=== PATIENT | female | born 1955 | race African-American/Black ===

== ENCOUNTER 2017-07-02 10:26 | Emergency (ER) | payer BC ==
[~2017-07-02] VITALS: Ht 167.6 cm; Wt 72.6 kg
[2017-07-02] MEDS ORDERED: LOSA1TAB42 PO (10:39)
[2017-07-02] MEDS ORDERED: [UNRECOGNIZED DRUG - REMARK] (10:40)
[2017-07-02] MEDS ORDERED: NITROGLYCERIN 0.4 MG/TAB BOTTLE SL ONE ×2 (10:45→10:56)
[2017-07-02] MEDS ORDERED: IV NORMAL SALINE 500 ML BAG IV ONE (10:45)
[2017-07-02] MEDS ORDERED: ASPIRIN 325 MG TABLET PO ONE (10:45)
[2017-07-02] MEDS ORDERED: ASPIRIN 325 MG TABLET ONE (10:56)
[2017-07-02 11:03] VITALS: BP 113/69
[2017-07-02 11:19] LABS: BASOPHILS # (AUTO) 0.1 K/uL (0.0-8.0); BASOPHILS % (AUTO) 1.2 % (0.0-2.0); EOSINOPHILS # (AUTO) 0.1 K/uL (0.0-0.7); EOSINOPHILS % (AUTO) 1.6 % (0.0-7.0); HEMATOCRIT 35.6 % (31.2-41.9); HEMOGLOBIN 11.8 g/dL (10.9-14.3); LYMPHOCYTES % (AUTO) 45.1 % (20.5-51.5); MEAN CORPUSCULAR HEMOGLOBIN 31.4 uug (24.7-32.8); MEAN CORPUSCULAR HGB CONC 33 g/dL (32.3-35.6); MEAN CORPUSCULAR VOLUME 94.5 fL (75.5-95.3); MONOCYTES # (AUTO) 0.5 K/uL (2.0-10.0); MONOCYTES % (AUTO) 10.9 % (0.0-11.0); NEUTROPHILS # (AUTO) 1.8 K/uL (1.8-8.9); NEUTROPHILS % (AUTO) 41.2 % (38.5-71.5); PLATELET COUNT (AUTO) 289 K/uL (179-408); RED BLOOD CELL COUNT(AUTO) 3.76 MIL/uL (3.63-4.92); WHITE BLOOD COUNT (AUTO) 4.4 K/uL (3.8-11.8)
[2017-07-02 11:22] LABS: CREATININE 1.2 mg/dL (0.6-1.3); POTASSIUM 4.7 mmol/L (3.5-5.1)
[2017-07-02 11:35] LABS: BILIRUBIN,DIRECT 0.1 mg/dL (0.0-0.2); BILIRUBIN,TOTAL 0.7 mg/dL (0.2-1.0); TOTAL PROTEIN, SERUM 6.9 g/dL (6.4-8.2)
[2017-07-02] MEDS ORDERED: DICYCLOMINE HCL 10 MG/5 ML UDC LIQ PO ONE (11:45)
[2017-07-02] MEDS ORDERED: MAG HYDROX/AL HYDROX/SIMETH 30 ML LIQUID UDC PO ONE (11:45)
[2017-07-02] MEDS ORDERED: MAG HYDROX/AL HYDROX/SIMETH 30 ML LIQUID UDC ONE ×2 (11:47)
[2017-07-02] MEDS ORDERED: DICYCLOMINE HCL 10 MG/5 ML UDC LIQ ONE (11:48)
--- NOTE | 2017-07-02 11:59 | NUR ---
[email or web address] Catheter intact and site benign. Pressure and 4x4 gauze applied to site. No bleeding noted. Patient discharged to home in stable conditon & steadt gait. Written and verbal after care instructions given to patient. Patient verbalizes understanding of instructions.
== END 2017-07-02 12:11 | disposition home or self-care (01) ==
LOC: ER 10:28
DX: R07.89 Other chest pain (principal); I10 Essential (primary) hypertension; Z87.891 Personal history of nicotine dependence; Z79.899 Other long term (current) drug therapy
CPT/HCPCS: 36415; 70030-TC; 71045; 85025; 85730; 93005; A4663